=== PATIENT | female | born 1990 | race Hispanic/Latino ===

== ENCOUNTER 2018-02-07 07:50 | Observation (INO) | payer MEDICAID, OTHER ==
[~2018-02-07] VITALS: Ht 160 cm; Wt 102.5 kg
[~2018-02-07 07:50] MED LIST: PREN-196 PO
[2018-02-07 08:25] LABS: APPEARANCE,URINE Cloudy (CLEAR); BILIRUBIN,URINE Negative (NEGATIVE); COLOR,URINE Dark Yellow (YELLOW); GLUCOSE, URINE (UA) Negative (NEGATIVE); KETONES,URINE 15 mg/dL (NEGATIVE); LEUKOCYTE ESTERASE ,URINE Large (NEGATIVE); NITRATE,URINE Negative (NEGATIVE); OCCULT BLOOD,URINE Moderate (NEGATIVE); PROTEIN,URINE Trace (NEGATIVE)
[2018-02-07 08:28] LABS: RBC,URINE 0-1 /HPF (0-1)
[2018-02-07 08:29] LABS: BACTERIA,URINE Few /HPF (None Seen); MUCUS,URINE Few LPF (None Seen); SQUAMOUS EPITHELIAL CELL,UR Moderate /HPF (0-2); WBC,URINE 51-100 /HPF (0-1)
[2018-02-07] MEDS ORDERED: CEFTRIAXONE SODIUM 1 GM IV SCH (08:45)
[2018-02-07] MEDS ORDERED: LACTATED RINGERS 1000ML 1,000 ML IV SCH (08:45)
== END 2018-02-07 10:40 | disposition home or self-care (01) ==
LOC: EDH 07:50 → LDH 07:51
PROVIDERS: ADMIT Specialist; ATTEND Specialist
DX: O26.893 Other specified pregnancy related conditions, third trimester (principal); N89.8 Other specified noninflammatory disorders of vagina; Z3A.30 30 weeks gestation of pregnancy
CPT/HCPCS: 81001; 99285; G0378 ×3; J0696; J7120; 96360; 96361

== ENCOUNTER 2018-02-27 09:36 | Observation (INO) | payer MEDICAID ==
[2018-02-27 10:48] LABS: APPEARANCE,URINE SL CLOUDY (CLEAR); BILIRUBIN,URINE NEGATIVE (NEGATIVE); COLOR,URINE YELLOW (YELLOW); GLUCOSE, URINE (UA) NEGATIVE (NEGATIVE); KETONES,URINE 15 mg/dL (NEGATIVE); LEUKOCYTE ESTERASE ,URINE LARGE (NEGATIVE); NITRATE,URINE NEGATIVE (NEGATIVE); OCCULT BLOOD,URINE LARGE (NEGATIVE); PH,URINE 6.5 (5.0-8.0); PROTEIN,URINE NEGATIVE (NEGATIVE); UROBILINOGEN,URINE 0.2 mg/dL (0.2-1.0)
[2018-02-27 11:03] LABS: BACTERIA,URINE Moderate /HPF (None Seen); SQUAMOUS EPITHELIAL CELL,UR Moderate /HPF (0-2)
[2018-02-27] MEDS ORDERED: TERBUTALINE SULFATE VIAL 1MG/ML SQ SCH (12:15)
[2018-02-27] MEDS ORDERED: LACTATED RINGERS 1000ML IV SCH (12:15)
== END 2018-02-27 13:12 | disposition home or self-care (01) ==
LOC: EDH 09:36 → LDH 09:37
PROVIDERS: ADMIT Obstetrics & Gynecology; ATTEND Obstetrics & Gynecology
DX: O26.853 Spotting complicating pregnancy, third trimester (principal); Z87.891 Personal history of nicotine dependence; Z3A.33 33 weeks gestation of pregnancy
CPT/HCPCS: 81001; 96372; 99285; G0378 ×4; J3105; J7120; 96360; 96374

== ENCOUNTER 2018-03-14 07:57 | Observation (INO) | payer MEDICAID ==
[~2018-03-14] VITALS: Ht 160 cm; Wt 102.1 kg
[2018-03-14 08:50] LABS: APPEARANCE,URINE Error (CLEAR); BILIRUBIN,URINE Negative (NEGATIVE); COLOR,URINE Dark Yellow (YELLOW); GLUCOSE, URINE (UA) Negative (NEGATIVE); KETONES,URINE Negative (NEGATIVE); LEUKOCYTE ESTERASE ,URINE Large (NEGATIVE); NITRATE,URINE Negative (NEGATIVE); OCCULT BLOOD,URINE Large (NEGATIVE); PH,URINE 5.5 (5.0-8.0); PROTEIN,URINE Trace (NEGATIVE)
[2018-03-14 09:15] LABS: BACTERIA,URINE Few /HPF (None Seen); MUCUS,URINE Rare LPF (None Seen); SQUAMOUS EPITHELIAL CELL,UR Few /HPF (0-2); WBC,URINE 26-50 /HPF (0-1)
== END 2018-03-14 12:01 | disposition home or self-care (01) ==
LOC: EDH 07:57 → LDH 07:58
PROVIDERS: ADMIT Obstetrics & Gynecology; ATTEND Obstetrics & Gynecology
DX: O62.9 Abnormality of forces of labor, unspecified (principal); O42.92 Full-term premature rupture of membranes, unspecified as to length of time between rupture and onset of labor; O26.893 Other specified pregnancy related conditions, third trimester; R10.9 Unspecified abdominal pain; Z3A.37 37 weeks gestation of pregnancy
CPT/HCPCS: 59025; 81001; 99284; G0378 ×4; J7120; 96360